=== PATIENT | male | born 1975 | race Hispanic/Latino ===

== ENCOUNTER → 2018-12-26 | Outpatient (CLI) | payer OTHER | END | disposition home or self-care (01) | LOC: RAH 13:36 | PROVIDERS: ATTEND Physical Medicine & Rehabilitation | DX: M54.2 Cervicalgia (principal) | CPT/HCPCS: 72052 ==

== ENCOUNTER → 2019-03-18 | Outpatient (CLI) | payer BC | END | disposition home or self-care (01) | LOC: RAH 10:47 | PROVIDERS: ATTEND Physical Medicine & Rehabilitation | DX: M54.2 Cervicalgia (principal) | CPT/HCPCS: 72125 ==